=== PATIENT | female | born 1975 | race Caucasian/White ===

== ENCOUNTER 2017-01-22 10:48 | Emergency (ER) | payer MEDICAID ==
[2017-01-22 12:05] LABS: CALCIUM 9.1 mg/dL (8.5-10.1); CHLORIDE SERUM 109 mmol/L (98-107); CREATININE SERUM 0.7 mg/dL (0.6-1.0); GFR1 > 60 mL/min; GLUCOSE SERUM 71 mg/dL (74-106); POTASSIUM SERUM 4.1 mmol/L (3.5-5.1); SODIUM SERUM 145 mmol/L (136-145)
[2017-01-22 12:11] LABS: ALBUMIN 3.4 g/dL (3.4-5.0); ALKALINE PHOSPHATASE 138 U/L (46-116); ALT/SGPT 39 U/L (14-59); AST/SGOT 58 U/L (15-37); TOTAL PROTEIN, SERUM 7.2 g/dL (6.4-8.2)
[2017-01-22 12:28] LABS: PLATELET COUNT 388 x10^3mcL (130-400); RED CELL DISTRIBUTION WIDTH 12.9 % (11.5-14.5)
[2017-01-22 12:32] LABS: BASOPHIL % 3.3 % (0-2)
[2017-01-22 12:41] LABS: AMPHETAMINE QUAL UR POSITIVE (NEG <=1000); UA SPECIFIC GRAVITY <=1.005 (1.005-1.035); microscopic required? YES; urine erythrocyte TRACE (NEGATIVE)
[2017-01-22 18:30] VITALS: BP 129/86
[2017-01-23] MEDS ORDERED: PROZ20 PO (19:22)
== END 2017-01-22 19:20 | disposition home or self-care (01) ==
LOC: ED 10:48
PROVIDERS: Emergency Medicine
DX: F19.10 Other psychoactive substance abuse, uncomplicated (principal)
CPT/HCPCS: 80307; G0480

== ENCOUNTER 2017-01-23 14:46 | Inpatient (IN) | payer MEDICAID ==
[~2017-01-23] VITALS: Ht 157.5 cm; Wt 71.9 kg
--- NOTE | 2017-01-23 15:03 | NUR ---
BROUGHT IN BY AMBULANCE. PT FROM [facility] WITH ALOC, POSSIBLE OVERDOSE ON MEDS. PT ADMITS TO TAKING ATIVAN, SUDAFED, IBUPROFEN AND PROZAC @ 0700. PT DENIES SUICIDAL IDEATION, STATES "I JUST WANT T5O SLEEP". ON ARRIVAL, PT ORIENTED TO NAME AND PLACE, "IM NOT CRAZY, I JUST WANT TO SLEEP". APPEARS DROWSY, DENIES ALCOHOL OR DRUG USE.
--- NOTE | 2017-01-23 16:20 | NUR ---
SEEN BY DR LUCAS
--- NOTE | 2017-01-23 16:40 | NUR ---
SHIRLEY (FRIEND) AT BEDSIDE. PER SHIRLEY PT VERBALIZED TO HER THAT SHE IS SUICIDAL. DR. LUCAS AND PRIMARY NURSEC AMY INFORMED.
--- NOTE | 2017-01-23 16:45 | NUR ---
DR LUCAS SPEAKING TO PT'S FRIEND SHIRLEY REGARDING PT
--- NOTE | 2017-01-23 16:55 | NUR ---
LAB AT BEDSIDE FOR BLOOD DRAW
[2017-01-23 17:07] LABS: BASOPHIL % 0.8 % (0-2); PLATELET COUNT 334 x10^3mcL (130-400)
[2017-01-23 17:13] LABS: CALCIUM 8.6 mg/dL (8.5-10.1); CARBON DIOXIDE 26.8 mmol/L (21-32); CHLORIDE SERUM 109 mmol/L (98-107); CREATININE SERUM 0.7 mg/dL (0.6-1.0); GFR1 > 60 mL/min; GLUCOSE SERUM 74 mg/dL (74-106); POTASSIUM SERUM 3.9 mmol/L (3.5-5.1); SODIUM SERUM 144 mmol/L (136-145)
[2017-01-23 17:17] LABS: ALKALINE PHOSPHATASE 116 U/L (46-116); ALT/SGPT 29 U/L (14-59); AST/SGOT 37 U/L (15-37); BILIRUBIN TOTAL 0.39 mg/dL (0.20-1.00); TOTAL PROTEIN, SERUM 6.6 g/dL (6.4-8.2)
[2017-01-23 17:31] LABS: UA SPECIFIC GRAVITY >=1.030 (1.005-1.035); microscopic required? YES; urine erythrocyte NEGATIVE (NEGATIVE)
[2017-01-23] MEDS ORDERED: PROZ20 PO (19:22)
--- NOTE | 2017-01-23 19:53 | NUR ---
REPORT GIVEN TO CHANDLER JUDGE RN
[2017-01-23 20:09] LABS: AMPHETAMINE QUAL UR POSITIVE (NEG <=1000)
--- NOTE | 2017-01-23 20:35 | NUR ---
RECEIVED PT FROM ED VIA TONY LAZO. DENIES HEADACHE/DIZZINESS. NO SOB NOTED, LUNG SOUNDS DIMINISHED ON AUSCULTATION. DENIES CHEST PAIN/PRESSURE, NSR ON THE MONITOR. DENIES ABDOMINAL DISCOMFORT. APPEARS DEPRESSED AND HAS FLAT AFFECT. C/O 6/10 LEFT FOOT PAIN WORSE ON MOVEMENT AND TOUCH. W/ DRY SCAB AND SKIN TEAR ON THE LEFT POSTERIOR ASPECT OF THE FOOT. IV SITE PATENT AND INTACT. SIDE RAILS UPX2. CALL LIGHT ON REACH. ENDORSED TO PRIMARY NURSE BONNIE FOR CONTINUITY OF CARE
[2017-01-23 21:26] VITALS: Ht 157.5 cm; Wt 71.9 kg
[2017-01-23 22:10] VITALS: BP 115/67
[2017-01-23 23:35] LABS: MAGNESIUM 1.6 mg/dL (1.8-2.4); PHOSPHOROUS 3.7 mg/dL (2.5-4.9)
[2017-01-23 23:36] LABS: CHOLESTEROL/HDL RATIO 2.5
[2017-01-23 23:38] LABS: T3 TOTAL 0.92 ng/mL
[2017-01-24 00:05] LABS: FREE T4 0.91 ng/dL (0.76-1.46); FREE THYROXINE INDEX 2.7 ug/dL (1.4-4.5); T4(THYROXINE) 7.6 ug/dL (4.7-13.3)
--- NOTE | 2017-01-24 01:56 | NUR ---
PT GIVEN MAGNESIUM PER ORDER. WILL CONTINUE TO MONITOR.
--- NOTE | 2017-01-24 03:31 | NUR ---
PT IS ASLEEP AND RESTING WELL. NO SIGNS OF DISTRESS. NO SIGNS OF PAIN. NO SIGNIFICANT CHANGES. WILL CONTINUE MONITOR.
--- NOTE | 2017-01-24 04:50 | NUR ---
PT COMPLAINS OF PAIN 10/10 ON THE PAIN SCALE. GIVEN PRN MORPHINE SULFATE. WILL CONTINUE TO MONITOR.
--- NOTE | 2017-01-24 05:11 | NUR ---
PT HAS A HEALING ABRASION ON THE LEFT FOOT WITH A +2 EDEMA NOTED, TENDER TO TOUCH. PICTURE TAKEN.
[2017-01-24 06:06] VITALS: BP 136/87
--- NOTE | 2017-01-24 06:21 | NUR ---
PT SLEPT THROUGHOUT THE SHIFT. NO SOB. NO SIGNIFICANT CHANGES NOTED. ALL NEEDS MET AND ATTENDED TO. IV INTACT AND PATENT. BED IN LOWEST POSITION. WILL CONTINUE TO MONITOR AND ENDORSE ALL CONTINUITY CARE TO ONCOMING NURSE.
[2017-01-24 06:35] LABS: BASOPHIL % 0.5 % (0-2); PLATELET COUNT 323 x10^3mcL (130-400)
[2017-01-24 06:56] LABS: CALCIUM 8.3 mg/dL (8.5-10.1); CARBON DIOXIDE 25.5 mmol/L (21-32); CHLORIDE SERUM 111 mmol/L (98-107); CREATININE SERUM 0.8 mg/dL (0.6-1.0); GFR1 > 60 mL/min; GLUCOSE SERUM 76 mg/dL (74-106); MAGNESIUM 2.2 mg/dL (1.8-2.4); PHOSPHOROUS 3.3 mg/dL (2.5-4.9); POTASSIUM SERUM 3.8 mmol/L (3.5-5.1); SODIUM SERUM 146 mmol/L (136-145)
--- NOTE | 2017-01-24 07:20 | NUR ---
RECEIVED PATIENT ASLEEP BUT AROUSABLE, OPEN EYES BRIEFLY, NO ACUTE DISTRESS NOTED. IV INTACT, TELE MONITOR IN PLACE; PATIENT REFUSED SCD. SITTER REMAIN AT BEDSIDE. CONT TO MONITOR.
--- NOTE | 2017-01-24 07:26 | NUR ---
GIVEN BEDSIDE REPORT TO MARCELLUS LEMUS. PT IS ASLEEP. IV INFUSING WELL. NO SOB. NO SIGNIFICANT CHANGES. ENDORSE ALL CARE TO AM NURSE.
[2017-01-24 09:22] VITALS: BP 129/95
--- NOTE | 2017-01-24 09:44 | NUR ---
PATIENT AWAKE AND ALERT, SITTING UP IN BED EATING, NO ACUTE DISTRESS NOTED. ALL DUE MEDS GIVEN NO PROBLEM SWALLOWING. MORPHINE 1MG IVP GIVEN FOR 10/10 LEFT FOOT PAIN, IV INTACT. NEEDS ANTICIPATED. CONT TO MONITOR.
--- NOTE | 2017-01-24 11:30 | NUR ---
PATIENT SLEEPING AT THIS TIME, SITTER AT BEDSIDE; CONT TO MONITOR.
--- NOTE | 2017-01-24 13:15 | NUR ---
Patient remain sleeping at this time. Sitter at bedside. Cont to monitor.
--- NOTE | 2017-01-24 13:43 | NUR ---
PATIENT AWAKE AT THIS TIME, DIRECTOR WRITING ASSISTING WITH LUNCH TRAY. ATIVAN AND MORPHINE 1MG IVP GIVEN FOR 7/10 LEFT FOOT PAIN, CONT TO MONITOR.
--- NOTE | 2017-01-24 14:40 | NUR ---
PATIENT STILL SLEEPING, AROUSED EASILY, NO COMPLAINTS. DUE MEDS GIVEN, NEEDS ANTICIPATED. CONT TO MONITOR.
--- NOTE | 2017-01-24 15:13 | NUR ---
PATIENT AROUSABLE NO ACUTE DISTRESS NOTED, INFORM PATIENT TRANSPORT WILL TAKE PATIENT DOWN FOR CT. IV [place]PL[place]. PATIENT OFF FLOOR.
[2017-01-24 16:39] VITALS: BP 134/89
--- NOTE | 2017-01-24 16:41 | NUR ---
PATIENT ASLEEP BUT AROUSED EASILY, TRANSFER PHONE CALL TO PATIENT, PER PATIENT PERMISSION UPDATE PT'S CONDITION TO FRIEND ( SHIRLEY); C/O 8/10 LEFT FOOT PAIN, MORPHINE 1MG IVP GIVEN. CONT TO MONITOR.
--- NOTE | 2017-01-24 17:00 | NUR ---
DR. RUTH SEEN PATIENT AT THIS TIME, PATIENT ASLEEP BUT AROUSABLE, PER MD ONCE MEDICALLY CLEARED PATIENT MAY D/C HOME. SITTER REMAIN AT BEDSIDE.
--- NOTE | 2017-01-24 18:06 | NUR ---
PATIENT REMAIN ASLEEP AT THIS TIME, DINNER TRAY LEFT ON BEDSIDE TABLE. CONT TO MONITOR.
--- NOTE | 2017-01-24 18:56 | NUR ---
Received call from lab K level 2.8; Dr. Hudson is page and awaiting for MD to call back.
--- NOTE | 2017-01-24 19:51 | NUR ---
PT IS A/O X4, VERBAL RESPONSIVE, ABLE TO TELL WHAT SHE NEEDS, LUNG SOUND DIMINISHED BILATERAL, DENY ANY SOB AT THIS TIME, PT IS ON TELE 23, NSR, DENY ANY CHEST PAIN OR DISCOMFORT, BOWEL SOUND PRESENT ALL 4 QUADRANTS, NO DISTENTION, NO TENDER. PEDAL PULSE PRESENT BOTH FEET, TRACE EDEMA ON BLE, LEFT FEET WAS COVERED WITH MIRIAM WRAP. PT C/O PAIN AT LEFT FEET 5/10 AT THIS MOMENT, INSTRUCT PT NON WEIGHT BEARING AT LEFT FEET, PT VERBAL REPLY UNDERSTAND, IV AT RIGHT AC, NO LEAKING, NO INFILTRATION. ALL ADLS ASSIST, ALL NEED MET, CALL LIGHT IN REACH, WILL CONTINUE TO MONITOR.
[2017-01-24 22:06] VITALS: BP 130/84
--- NOTE | 2017-01-25 05:10 | NUR ---
PT IS SLEEPING, NO S/S RESPIRATORY DISTRESS, NO S/S OF PAIN OR DISCOMFORT, IV AT RIGHT AC, NO LEAKING, NO INFILTRATION. ALL ADLS ASSIST, ALL NEED MET, CALL LIGHT IN REACH, WILL CONTINUE TO MONITOR.
[2017-01-25 05:35] VITALS: BP 131/94
[2017-01-25 06:42] LABS: CALCIUM 8.2 mg/dL (8.5-10.1); CARBON DIOXIDE 28.2 mmol/L (21-32); CHLORIDE SERUM 111 mmol/L (98-107); CREATININE SERUM 0.6 mg/dL (0.6-1.0); GFR1 > 60 mL/min; GLUCOSE SERUM 83 mg/dL (74-106); POTASSIUM SERUM 3.9 mmol/L (3.5-5.1); SODIUM SERUM 147 mmol/L (136-145)
[2017-01-25 06:43] LABS: BASOPHIL % 0.6 % (0-2); PLATELET COUNT 273 x10^3mcL (130-400); RED CELL DISTRIBUTION WIDTH 13.9 % (11.5-14.5)
--- NOTE | 2017-01-25 07:05 | NUR ---
RECEIVED REPORT FROM NOC MARCELLUS PEREZ AT THIS TIME. PATIENT IS RESTING IN BED WITH EYES CLOSED. SEIZURE PRECAUTIONS IN PLACE. ON ROOM AIR, NO DISTRESS NOTED. IV TO RAC PATENT AND INTACT, INFUSING NS AT 50ML/HR. MIRIAM WRAP TO LEFT FOOT, CDI. SCDS AT THE BEDSIDE. CALL LIGHT WITH IN REACH. WILL CONTINUE TO MONTIOR.
--- NOTE | 2017-01-25 09:25 | NUR ---
PATIENT C/O ACHING, PAIN TO LEFT FOOT 05/04. WILL MEDICATE ORDRED (SEE EMAR).
[2017-01-25 10:19] VITALS: BP 115/67
--- NOTE | 2017-01-25 12:15 | NUR ---
PHYSICAL THERAPY IN TO WORK WITH PATIENT AT THIS TIME. PATIENT WILL BE SENT HOME WITH CRUTCHES.
--- NOTE | 2017-01-25 13:20 | NUR ---
CRUTCHES FOR PATIENT TO TAKE HOME OBTAINED FROM [facility].
--- NOTE | 2017-01-25 14:08 | NUR ---
DR. VILLA IN TO SEE PATIENT AT THIS TIME.
[2017-01-25 15:04] VITALS: BP 115/67
--- NOTE | 2017-01-25 15:48 | NUR ---
P.T. NOTES Pt CLEARED PER RN FOR PT EVAL. CHART REVIEWED. Pt ADMITTED TO HOSPITAL S/P ALOC AND L FOOT PAIN. Pt IS STAYING W/FRIEND AND SHE REPORTS IND WITH ADLs. HAS SPC SHE WAS USING FOR AMBU. PLEASE SEE IMAGING FINDINGS FOR L FOOT. S: Pt PRESENTS AWAKE, ALERT AND AGREEABLE FOR PT EVAL. 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 Pt W/SOME L FOOT PAIN, APPROX 4/10 PER OLGUIN ROY PAIN SCALE, MOSTLY RELATED TO MOVEMENT/MOBILITY. Pt TO BE NWB ON LLE AT THIS TIME W/POST OP SHOE IN PLACE. O: PLEASE SEE EVAL FOR DETAILS. Pt MOSTLY REQUIRES CGA/MIN A FOR BED MOB, TRANSFERS AND GT WITH CRUTCHES FOR 160 FT. Pt EDU ON SAFETY, WB STATUS/PRECAUTIONS AND PROPER USE OF CRUTCHES W/GOOD LEARNING LIANET'Lino.SAFELY ASSISTED BTB WITH ALL LINES INTACT, CALL LIGHT AND TRAY IN REACH, HOB ELEVATED. LLE ELEVATED. COOPERATIVE AND APPRECIATIVE OF CARE. 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 VS: BP 147/91, HR 67BPM, SP02 95% ON RA. A: Pt TOLERATED PT WELL. DEMO'S STEADY GAIT W/CRUTCHES W/NO LOB AND GOOD COMPLIANCE W/L LE NWB PRECAUTIONS. GAIT DISTANCE LIMITED BY FATIGUE. Pt WILL BENEFIT FROM PT DURING ACUTE STAY AND POST ACUTE STAY. FWB RLE. P: POC REVIEWED W/NIGHT WORKER. PLEASE SEE Pt ONCE DAILY, 6X/WK, 1 WEEK. EVAL 30' [phone] (2)PVE FOR SBA/SAFETY, FOLLOW W/IV POLE DURING GT. [id number] TUG 12 SEC Pt PROVIDED W/CRUTCH TRAINING, PROVIDED W/PROPER TRANSFERS SIT<>STAND W/CRUTCHES WELL GAIT SEQUENCING AND PROPER DIRECTIONAL CHANGES W/CRUTCHES WHILE NWB LLE. LIANET GOOD LEARNING. 1 GT 10' [phone]
[2017-01-25] MEDS ORDERED: MOT600 PO (16:54)
--- NOTE | 2017-01-25 17:44 | NUR ---
DISCHARGE INSTRUCTIONS GIVEN AT THIS TIME. PATIENT VERBALIZE UNDERSTANDING. IV REMOVED CATH, INTACT. ID BANDS REMOVED.
== END 2017-01-25 18:05 | disposition home or self-care (01) | DRG 812 ==
LOC: ED 14:46 → DU 18:27 → MU 01-25 06:07
PROVIDERS: Family Medicine; Specialist; ADMIT Family Medicine
DX: T42.4X1A Poisoning by benzodiazepines, accidental (unintentional), initial encounter (principal); G92 Toxic encephalopathy; E44.0 Moderate protein-calorie malnutrition; F33.1 Major depressive disorder, recurrent, moderate; T40.7X1A Poisoning by cannabis (derivatives), accidental (unintentional), initial encounter; T43.621A Poisoning by amphetamines, accidental (unintentional), initial encounter; I16.0 Hypertensive urgency; M79.672 Pain in left foot; F15.10 Other stimulant abuse, uncomplicated; F12.10 Cannabis abuse, uncomplicated; F10.10 Alcohol abuse, uncomplicated; F17.210 Nicotine dependence, cigarettes, uncomplicated; Z68.29 Body mass index [BMI] 29.0-29.9, adult; Y92.018 Other place in single-family (private) house as the place of occurrence of the external cause
CPT/HCPCS: 80307; 83880; 84439; 97116-GP; G0480; J2270; J3475; J7030